=== PATIENT | female | born 1995 | race American Indian/Alaskan Native ===

== ENCOUNTER 2016-11-29 01:41 | Emergency (ER) | payer SELFPAY | END 2016-11-29 03:11 | disposition left against medical advice (07) | LOC: ED 01:41 | DX: M54.9 Dorsalgia, unspecified (principal); Z53.21 Procedure and treatment not carried out due to patient leaving prior to being seen by health care provider ==

== ENCOUNTER 2017-02-24 08:52 | Outpatient (CLI) | payer MEDICAID ==
--- NOTE | 2017-02-24 10:35 | Ultrasound Report ---
Bilateral global breast ultrasound including all 4 quadrants and subareolar regions of each breast. History: Palpable lump in the left breast. Findings: At the 1:00 position of the left breast, 5 cm from the nipple, is a circumscribed hypoechoic ovoid shaped mass measuring 1.4 x 0.7 cm. There is no acoustic shadowing. The remainder of the left breast is normal. No findings are seen throughout the right breast. Impression: Circumscribed solid nodule at the 1:00 position of the left breast measuring 1.4 x 0.7 cm. This most likely represents a fibroadenoma. BI-RADS code: 3. Recommendation: 6 month followup left breast ultrasound unless excision or biopsy is elected on clinical basis.
== END 2017-02-24 08:53 | disposition home or self-care (01) ==
LOC: US 08:52
PROVIDERS: ATTEND Obstetrics & Gynecology
DX: N63 Unspecified lump in breast (principal)

== ENCOUNTER 2020-02-10 16:52 | Emergency (ER) | payer MEDICAID ==
[2020-02-10 18:12] LABS: Basophils % (Auto) 0.3 % (0.0-1.8); Eosinophils # (Auto) 0.1 K/mm3 (0.0-0.4); Hematocrit 34.4 % (30.3-42.9); Hemoglobin 11.7 gm/dl (10.1-14.3); Lymphocytes # (Auto) 1.5 K/mm3 (1.2-5.4); Lymphocytes % (Auto) 16.9 % (13.4-35.0); Mean Corpuscular HGB Conc 34 % (30-34); Mean Corpuscular Volume 87 fl (79-97); Monocytes # (Auto) 0.6 K/mm3 (0.0-0.8); Monocytes % (Auto) 6.7 % (0.0-7.3); Platelet Count 182 K/mm3 (140-440); Red Blood Count 3.96 M/mm3 (3.65-5.03); Red Cell Distribution Width 13.6 % (13.2-15.2)
[2020-02-10 18:34] LABS: Alanine Aminotransferase 9 units/L (7-56); Albumin 3.6 g/dL (3.9-5); Blood Urea Nitrogen 8 mg/dL (7-17); Calcium 9.2 mg/dL (8.4-10.2); Hemolysis Index 7
[2020-02-10 18:42] LABS: BUN/Creatinine Ratio 13
--- NOTE | 2020-02-10 18:45 | Ultrasound Report ---
US OB >= 14 weeks Fetus INDICATION / CLINICAL INFORMATION: , abd pain. COMPARISON: None available. FINDINGS: Transabdominal imaging was performed. Amniotic fluid index is 7.9 cm at the lower limits of normal. Single intrauterine is seen. heart rate is 155. Femur length is 3.1 cm, 19 weeks 4 da ys. There is a grade 0 placenta. IMPRESSION: 1. No abnormalities are seen. Signer Name: Xavier Patterson MD Signed: 02/10/2020 6:40 PM Workstation Name: [id number]
--- NOTE | 2020-02-10 19:25 | Emergency Department Report ---
ED Female HPI - General Chief complaint: Abdominal Pain Stated complaint: ABD PAIN Time Seen by Provider: 02/10/20 18:58 Source: patient Mode of arrival: Ambulatory Limitations: No Limitations - History of Present Illness MD Complaint: pelvic pain -: Gradual, This afternoon Location: suprapubic Radiation: non-radiating Severity: mild Quality: cramping Consistency: now resolved Improves with: none Worsens with: none Are you Now?: Yes Associated Symptoms: denies: vaginal discharge, dysuria, hematuria, shortness of breath, syncope, weakness - Related Data Previous Rx's Medication Instructions Recorded Last Taken Type Famotidine [Pepcid] 20 mg PO BID #40 tablet 10/12/14 Unknown Rx Promethazine [Phenergan] 25 mg PO Q6H PRN #20 tablet 10/12/14 Unknown Rx Ibuprofen [Motrin 800 MG tab] 800 mg PO Q8HR PRN #30 tablet 05/28/15 Unknown Rx Allergies Allergy/AdvReac Type Severity Reaction Status Date / Time No Known Allergies Allergy Verified 10/12/14 19:15 ED Review of Systems ROS: Stated complaint: ABD PAIN Other details as noted in HPI Comment: All other systems reviewed and negative ED Past Medical Hx - Past Medical History Previous Medical History?: No Hx Hypertension: No Hx Heart Attack/AMI: No Hx Diabetes: No Hx Pulmonary Embolism: No Hx Liver Disease: No Hx Renal Disease: No Hx Headaches / Migraines: No Hx Seizures: No Hx Asthma: No Hx COPD: No Hx Tuberculosis: No - Surgical History Past Surgical History?: Yes Additional Surgical History: 1X - Social History Smoking Status: Never Smoker Substance Use Type: None - Medications Home Medications: Home Medications Medication Instructions Recorded Confirmed Last Taken Type Famotidine [Pepcid] 20 mg PO BID #40 tablet 10/12/14 Unknown Rx Promethazine [Phenergan] 25 mg PO Q6H PRN #20 tablet 10/12/14 Unknown Rx Ibuprofen [Motrin 800 MG tab] 800 mg PO Q8HR PRN #30 tablet 05/28/15 Unknown Rx ED Physical Exam - General Limitations: No Limitations General appearance: alert, in no apparent distress - Head Head exam: Present: atraumatic, normocephalic - Eye Eye exam: Present: normal appearance, PERRL, EOMI Pupils: Present: normal accommodation - ENT ENT exam: Present: normal exam, mucous membranes moist, TM's normal bilaterally - Neck Neck exam: Present: normal inspection - Respiratory Respiratory exam: Present: normal lung sounds bilaterally. Absent: respiratory distress - Cardiovascular Cardiovascular Exam: Present: regular rate, normal rhythm. Absent: systolic murmur, diastolic murmur, rubs, gallop - GI/Abdominal GI/Abdominal exam: Present: soft, normal bowel sounds. Absent: distended - Extremities Exam Extremities exam: Present: normal inspection, normal capillary refill - Back Exam Back exam: Present: normal inspection - Neurological Exam Neurological exam: Present: alert, oriented X3 - Psychiatric Psychiatric exam: Present: normal affect, normal mood - Skin Skin exam: Present: warm, dry, intact, normal color. Absent: rash ED Course Vital Signs 02/10/20 17:17 Temperature 98.1 F Pulse Rate 90 Respiratory 18 Rate Blood Pressure 118/77 O2 Sat by Pulse 100 Oximetry ED Medical Decision Making - Lab Data Result diagrams: 02/10/20 17:49 02/10/20 17:49 Critical care attestation.: If time is entered above; I have spent that time in minutes in the direct care of this critically ill patient, excluding procedure time. ED Disposition Clinical Impression: Pelvic pain during Disposition: DC-01 TO HOME OR SELFCARE Is pt being admited?: No Does the pt Need Aspirin: No Condition: Stable Instructions: Abdominal Pain (ED) Referrals: PRIMARY CARE, [Primary Care Provider] - 3-5 Days (Please be sure to follow-up with your [employer])
[2020-02-10 19:40] VITALS: BP 119/76
== END 2020-02-10 19:39 | disposition home or self-care (01) ==
LOC: ED 16:52
DX: O26.892 Other specified pregnancy related conditions, second trimester (principal); R10.2 Pelvic and perineal pain; Z3A.19 19 weeks gestation of pregnancy; Z98.890 Other specified postprocedural states; Z79.1 Long term (current) use of non-steroidal anti-inflammatories (NSAID); Z79.899 Other long term (current) drug therapy
CPT/HCPCS: 36415; 76805; 80053; 84702; 85025

== ENCOUNTER 2020-06-24 12:05 | Outpatient (CLI) | payer MEDICAID ==
[2020-06-24 12:56] VITALS: BP 130/88
== END 2020-06-24 13:22 | disposition home or self-care (01) ==
LOC: APU 12:05 → TRG 12:05
PROVIDERS: ATTEND Obstetrics & Gynecology
DX: O26.893 Other specified pregnancy related conditions, third trimester (principal); R60.9 Edema, unspecified; Z3A.38 38 weeks gestation of pregnancy
CPT/HCPCS: 59025

== ENCOUNTER 2022-01-02 18:57 | Emergency (ER) | payer MEDICAID ==
[2022-01-02] MEDS ORDERED: traMADol 50 MG TAB PO ONE (23:12)
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
[2022-01-03 00:57] VITALS: BP 132/86
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
== END 2022-01-03 03:54 | disposition home or self-care (01) ==
LOC: ED 18:57
DX: S16.1XXA Strain of muscle, fascia and tendon at neck level, initial encounter (principal); S39.012A Strain of muscle, fascia and tendon of lower back, initial encounter; V89.2XXA Person injured in unspecified motor-vehicle accident, traffic, initial encounter; Y93.89 Activity, other specified; Y92.89 Other specified places as the place of occurrence of the external cause; Y99.8 Other external cause status
CPT/HCPCS: 72040; 72100; 99283